=== PATIENT | male | born 1965 | race African-American/Black ===

== ENCOUNTER 2018-06-02 11:47 | Emergency (ER) | payer OTHER ==
[2018-06-02] MEDS: KETOROLAC 30 MG INJ IV (15:08)
[2018-06-02] MEDS: METOCLOPRAMIDE 10 MG INJ IV (15:09)
[2018-06-02] MEDS: DIPHENHYDRAMINE 50 MG INJ IV (15:09)
[2018-06-02 15:21] LABS: ADD MAN DIFF? NO
[2018-06-02 15:25] LABS: BASOPHILS % 0.5 % (0.0-2.0); EOSINOPHILS # 0.1 10^3/ul (0.0-0.5); EOSINOPHILS % 1.7 % (0.0-7.0); HEMATOCRIT 41.7 % (42.0-52.0); HEMOGLOBIN 14.2 g/dl (14.0-18.0); LYMPHOCYTES # 1.5 10^3/ul (0.8-2.9); LYMPHOCYTES % 37.7 % (15.0-51.0); MEAN CORPUSCULAR HGB CONC 34.1 g/dl (32.0-37.0); MEAN CORPUSCULAR VOLUME 82.2 fl (82.0-101.0); MEAN PLATELET VOLUME 9.8 fl (7.4-10.4); MONOCYTE # 0.3 10^3/ul (0.3-0.9); MONOCYTES % 7.5 % (0.0-11.0); NEUTROPHIL # 2.1 10^3/ul (1.6-7.5); NEUTROPHILS % 52.4 % (39.0-77.0); PLATELET COUNT 198 10^3/UL (140-415); RED BLOOD COUNT 5.07 10^6/ul (4.70-6.10); RED CELL DISTRIBUTION WIDTH 12.3 % (11.5-14.5)
[2018-06-02 15:30] LABS: ADD UMIC NO; UR ASCORBIC ACID NEGATIVE (NEGATIVE); UR BILIRUBIN (Dip) NEGATIVE (NEGATIVE); UR BLOOD (Dip) NEGATIVE (NEGATIVE); UR CLARITY CLEAR (CLEAR); UR COLOR YELLOW (YELLOW); UR GLUCOSE (Dip) NEGATIVE (NEGATIVE); UR KETONES (Dip) NEGATIVE (NEGATIVE); UR LEUKOCYTE ESTERASE (Dip) NEGATIVE Leu/ul (NEGATIVE); UR NITRITE (Dip) NEGATIVE (NEGATIVE); UR SPECIFIC GRAVITY (Dip) 1.011 (1.003-1.030); UR TOTAL PROTEIN (Dip) NEGATIVE (NEGATIVE); UR UROBILINOGEN (Dip) NEGATIVE (NEGATIVE)
[2018-06-02 15:43] LABS: ALANINE AMINOTRANSFERASE 17 IU/L (13-69); ALBUMIN 4.5 g/dl (3.3-4.9); ALBUMIN/GLOBULIN RATIO 1.28; ALKALINE PHOSPHATASE 58 IU/L (42-121); ANION GAP 10 (5-13); ASPARTATE AMINO TRANSFERASE 16 IU/L (15-46); BILIRUBIN,INDIRECT 2.3 mg/dl (0-1.1); BILIRUBIN,TOTAL 2.3 mg/dl (0.2-1.3); BLOOD UREA NITROGEN 11 mg/dl (7-20); CALCIUM 9.8 mg/dl (8.4-10.2); CARBON DIOXIDE 29 mmol/L (21-31); CHLORIDE 103 mmol/L (97-110); Estimated GFR > 60 mL/min (>60); GLUCOSE 90 mg/dl (70-220); LIPASE 39 U/L (23-300); POTASSIUM 3.9 mmol/L (3.5-5.1); SODIUM 142 mmol/L (135-144)
== END 2018-06-02 17:15 | disposition home or self-care (01) ==
LOC: FTE 11:47
DX: R51 Headache (principal); K59.00 Constipation, unspecified; R10.9 Unspecified abdominal pain
CPT/HCPCS: 70450; 80053; 81003; 83690; 85025; 93005; 96374; 96375; 99285-25

== ENCOUNTER 2018-09-17 19:06 | Emergency (ER) | payer OTHER | END 2018-09-17 20:18 | disposition home or self-care (01) | LOC: FTE 19:06 | DX: J03.90 Acute tonsillitis, unspecified (principal) | CPT/HCPCS: 99283; Z7502 ==

== ENCOUNTER 2018-09-27 11:29 | Emergency (ER) | payer OTHER | END 2018-09-27 14:26 | disposition home or self-care (01) | LOC: FTE 11:29 | DX: J02.9 Acute pharyngitis, unspecified (principal) | CPT/HCPCS: 87880; 99283 ==

== ENCOUNTER → 2018-12-27 | Emergency (ER) | payer OTHER ==
[2018-12-27] MEDS: KETOROLAC 30 MG INJ IM (17:34)
== END | disposition home or self-care (01) ==
LOC: FTE 16:42
DX: S13.4XXA Sprain of ligaments of cervical spine, initial encounter (principal); G44.209 Tension-type headache, unspecified, not intractable; V49.49XA Driver injured in collision with other motor vehicles in traffic accident, initial encounter
CPT/HCPCS: 96372; 99284-25